=== PATIENT | male | born 1965 | race Caucasian/White ===

== ENCOUNTER 2022-12-23 09:43 | Day surgery (SDC) | payer BC ==
[2022-12-22 10:55] VITALS: BMI 25.0
[~2022-12-23 09:43] MED LIST: LACTATED RINGERS 1,000 ML IV SCH; LIDOCAINE 1% (10MG/ML) FOR IV START INTRADERMA PRN
[2022-12-23 10:30] VITALS: TEMP 97.1
[2022-12-23] MEDS ORDERED: LIDOCAINE 2% INJ 20 MG/ML (2 ML VIAL) ONE (10:58)
[2022-12-23] MEDS ORDERED: PROPOFOL 10 MG/ML 20 ML VIAL IV ONE (10:58)
--- NOTE | 2022-12-23 11:16 | P.OP ---
Date of Procedure: 12/23/22 Preoperative Diagnosis: Anal fistula Screening: Postoperative Diagnosis: Anal fistula at the 6 o'clock position Normal colonoscopy Anesthesia: MAC Surgeon: Jose Linares Pathology: none sent Condition: stable Disposition: PACU Description of Procedure: The patient's placed on the endoscopy table in the lateral position. He re ceived IV sedation. 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 The digital rectal exam was normal. The flexible colonoscope was then placed patient anus and passed throughout the entire colon. The ileocecal valve was visualized. The cecum, ascending and transverse colon appeared normal. The descending and sigmoid colon appeared normal. Scope was brought back the rectum this appeared normal. The fistula tract could not be visualized. Scope was withdrawn for patient.
[2022-12-23 11:47] VITALS: BP 126/74; PULSE 70; RESP 18
== END 2022-12-23 12:09 | disposition home or self-care (01) ==
LOC: ORWHC2ENDO 09:43
PROVIDERS: ATTEND Surgery
DX: K60.3 Anal fistula (principal); Z87.19 Personal history of other diseases of the digestive system
CPT/HCPCS: 45378; J2704; J2001

== ENCOUNTER 2023-01-24 06:16 | Day surgery (SDC) | payer BC ==
[2023-01-18 12:33] VITALS: BMI 23.0
[~2023-01-24 06:16] MED LIST changes: +ACETAMINOPHEN TAB 500 MG TAB PO PRN; +HEPARIN SODIUM,PORCINE/PF 5,000 UNIT/0.5 ML SYRINGE SQ PRN; -LACTATED RINGERS 1,000 ML IV SCH; -LIDOCAINE 1% (10MG/ML) FOR IV START INTRADERMA PRN; +Pre Op ABX Message 1 EACH MISC MISCELLANE ONE
[2023-01-24] MEDS ORDERED: MIDAZOLAM 2 MG/2 ML VIAL IV PRN (07:11)
[2023-01-24] MEDS ORDERED: DEXAMETHASONE SOD PHOSPHATE 4 MG/ML 1 ML VIAL IV ONE (07:11)
[2023-01-24] MEDS ORDERED: ONDANSETRON 4 MG/2 ML VIAL IVP ONE (07:11)
[2023-01-24] MEDS ORDERED: LACTATED RINGERS 1,000 ML IV SCH (07:11)
[2023-01-24] MEDS ORDERED: SCOPOLAMINE 1 MG/72 HR PATCH TRANSDERM ONE (07:11)
[2023-01-24] MEDS ORDERED: HYDROmorphone 0.5 MG/0.5 ML SYRINGE IVP PRN (07:11)
[2023-01-24] MEDS ORDERED: BUPIVACAIN-EPI 0.25%-1:200,000 30 ML VIAL SQ ONE ×3 (07:17→08:31)
[2023-01-24] MEDS ORDERED: PROPOFOL 10 MG/ML 20 ML VIAL IV ONE (07:58)
[2023-01-24] MEDS ORDERED: LIDOCAINE 2% INJ 20 MG/ML (2 ML VIAL) ONE (07:58)
[2023-01-24] MEDS ORDERED: fentaNYL (PF) 50 MCG/ML 2 ML AMP ONE (07:58)
[2023-01-24] MEDS ORDERED: SUCCINYLCHOLINE CHLORIDE 200 MG/10 ML VIAL IV ONE (07:58)
[2023-01-24] MEDS ORDERED: MIDAZOLAM 2 MG/2 ML VIAL ONE (07:58)
[2023-01-24] MEDS ORDERED: SODIUM CHLORIDE 0.9% 50 ML with ceFAZolin 2,000 MG IV ONE ×2 (08:19)
[2023-01-24] MEDS ORDERED: GELATIN SPONGE,ABSORB (LARGE) 1 EACH SPONGE TOPICAL ONE (08:33)
[2023-01-24 08:58] VITALS: RESP 16; TEMP 97
--- NOTE | 2023-01-24 08:59 | P.OP ---
Date of Procedure: 01/24/23 Preoperative Diagnosis: Anal fistula Postoperative Diagnosis: Anal fistula Internal and external hemorrhoids Procedure(s) Performed: Unroofing of anal fistula Internal and external hemorrhoidectomy Anesthesia: SHAY Surgeon: Jose Linares Estimated Blood Loss (ml): 5 Pathology: other (Internal and external hemorrhoids) Condition: stable Disposition: PACU Description of Procedure: The patient's placed on the operative table in the prone jackknife position after receiving general anesthetic. His anus was prepped and draped usual fashion. The anus was inspected. The anal retractors placed anus. At the 7 o'clock position there appeared to be evidence of a chronic anal fissure. The neoprobe was placed to the official. And then using left cautery the fistula was unroofed. At the 5 o'clock position there was internal and external hemorrhoids. These were grasped with Allis clamp and then using the Harmonic scissors the hemorrhoidectomy was performed. There was no bleeding seen. The anus was then a size 1% local Xylocaine. A piece of Gelfoam was placed in the anus. Patient top she will was sent to recovery room in stable condition.
[2023-01-24 10:16] VITALS: BP 137/78; PULSE 58
== END 2023-01-24 10:29 | disposition home or self-care (01) ==
LOC: OR 06:16
PROVIDERS: ATTEND Surgery
DX: K60.3 Anal fistula (principal); K64.8 Other hemorrhoids; K64.4 Residual hemorrhoidal skin tags; K21.9 Gastro-esophageal reflux disease without esophagitis; Z79.899 Other long term (current) drug therapy
CPT/HCPCS: 88304; 46255; J2250; J0330; J1100; J2405; J0690; J3010; J2704; J1644; J2001